=== PATIENT | female | born 1955 | race Caucasian/White ===

== ENCOUNTER 2017-01-14 09:00 | Outpatient (CLI) | payer MEDICAID | END 2017-01-14 09:15 | disposition home or self-care (01) | LOC: RT.N 09:00 | PROVIDERS: ATTEND Nurse Practitioner Gerontology | DX: R07.89 Other chest pain (principal) | CPT/HCPCS: 93005 ==

== ENCOUNTER 2017-08-19 17:08 | Outpatient (CLI) | payer MEDICAID ==
--- NOTE | 2017-08-20 07:39 | Ultrasound Report ---
EXAM: PELVIC ULTRASOUND EXAM DATE: 08/19/2017 06:30 PM. CLINICAL HISTORY: POSTMENOPAUSAL BLEEDING. COMPARISON: None. TECHNIQUE: Realtime transabdominal pelvic scan performed to identify the uterus and adnexa and as an overview of other pelvic structures, followed by transvaginal scan to provide greater detail of the u terus and adnexa, with static image documentation. FINDINGS: Uterus: 7.6 x 3.5 x 4.8 cm, volume 66.7 cc. Anteverted position. Heterogeneous. Masses: Dominant fundal/anterior fibroid measuring 3.1 x 2.5 x 3.5 cm Endometrium: 5.8 mm. Indwelling IUD obscures endometrial detail. Cervix: Few nabothian cysts. Right Ovary: 1.9 x 1.2 x 1.8 cm, volume 2.1 cc. Normal echotexture and blood flow. Left Ovary: 6.1 x 4.2 x 5.7 cm, volume 76 cc. Simple cyst measuring 5.8 x 3.7 x 5.3 cm. Normal blood flow in the surrounding ovarian tissue. Free Fluid: None. IMPRESSION: 1. Indwelling IUD obscures detailed evaluation of the endometrium. 2. Simple left ovarian cyst measuring 5.8 cm in maximal dimension. Recommend follow-up to ensure reso lution in the setting of exogenous hormonal therapy. 3. Leiomyomatous uterus. Dominant fundal fibroid measuring 3.5 cm. [facility] Referring Provider Line: [phone] SITE ID: [id number]
== END 2017-08-19 17:09 | disposition home or self-care (01) ==
LOC: DI 17:08
PROVIDERS: ATTEND Obstetrics & Gynecology
DX: N83.292 Other ovarian cyst, left side (principal); D25.9 Leiomyoma of uterus, unspecified
CPT/HCPCS: 76830; 76856

== ENCOUNTER 2017-10-17 10:44 | Outpatient (CLI) | payer MEDICAID ==
--- NOTE | 2017-10-17 12:21 | Ultrasound Report ---
PELVIC ULTRASOUND: 10/17/2017 CLINICAL INDICATION: Follow up left cyst. TECHNIQUE: Transabdominal pelvic ultrasound performed for global evaluation. Transvaginal pelvic ultrasound performed for detailed evaluation. Real-time scanning performed and static images obtained. COMPARISON: 08/19/2017 FINDINGS: The uterus is anteverted, measuring 8.6 x 5.2 x 3.7 cm. An IUD is again noted in the endometrial canal. Fundal leiomyoma measures 3.2 cm. The right ovary measures 2.8 x 2.1 x 1.6, and is unremarkable. The left ovary measures 6.4 x 5.5 x 4.9 cm, and again demonstrates a 5.7 x 4.7 x 4.5 cm simple cyst. No free fluid is present. IMPRESSION: NO SIGNIFICANT INTERVAL CHANGE IN THE LEFT OVARIAN CYST. STABLE IUD AND LEIOMYOMA. TD: 10/17/2017 12:20
== END 2017-10-17 10:45 | disposition home or self-care (01) ==
LOC: DI 10:44
PROVIDERS: ATTEND Obstetrics & Gynecology
DX: N83.202 Unspecified ovarian cyst, left side (principal); D25.9 Leiomyoma of uterus, unspecified; Z97.5 Presence of (intrauterine) contraceptive device
CPT/HCPCS: 76830; 76856

== ENCOUNTER 2017-12-06 09:28 | Outpatient (CLI) | payer MEDICAID | END 2017-12-06 09:29 | disposition home or self-care (01) | LOC: LAB.N 09:28 | PROVIDERS: ATTEND Obstetrics & Gynecology | DX: N83.292 Other ovarian cyst, left side (principal) | CPT/HCPCS: 36415; 86304 ==

== ENCOUNTER 2017-12-27 14:44 | Outpatient (CLI) | payer MEDICAID ==
[2017-12-27 15:04] LABS: BASOPHILS % (AUTO) 0.5 %; EOSINOPHILS # (AUTO) 0.1 10^3/uL (0.0-0.7); EOSINOPHILS % (AUTO) 1.6 %; HGB - HEMOGLOBIN 14.6 g/dL (12.0-16.0); LYMPHOCYTES % (AUTO) 30.1 %; MEAN CORPUSCULAR HEMOGLOBIN 31.3 pg (27.0-31.0); MEAN CORPUSCULAR HGB CONC 34.1 g/dL (32.0-36.0); MEAN PLATELET VOLUME 7.8 fL (7.9-10.8); MONOCYTES # (AUTO) 0.7 10^3/uL (0.0-1.0); MONOCYTES % (AUTO) 11.4 %; NEUTROPHILS # (AUTO) 3.7 10^3/uL (1.5-6.6); NEUTROPHILS % (AUTO) 56.4 %; PLT - PLATELET COUNT 228 10^3/uL (130-450); RED BLOOD COUNT 4.65 10^6/uL (4.20-5.40); RED CELL DISTRIBUTION WIDTH 13.9 % (12.0-15.0); WHITE BLOOD COUNT 6.5 x10^3/uL (4.8-10.8)
[2017-12-27 15:15] LABS: CALCIUM 9.1 mg/dL (8.5-10.3); CREATININE 0.7 mg/dL (0.4-1.0)
== END 2017-12-27 14:45 | disposition home or self-care (01) ==
LOC: LAB 14:44
PROVIDERS: ATTEND Obstetrics & Gynecology
DX: Z01.812 Encounter for preprocedural laboratory examination (principal); N83.292 Other ovarian cyst, left side
CPT/HCPCS: 36415; 71046; 80048; 85025; 86850; 86900; 86901; 93005

== ENCOUNTER 2017-12-27 15:10 | Outpatient (CLI) | payer MEDICAID | END 2017-12-27 15:11 | disposition home or self-care (01) | LOC: DI 15:10 | PROVIDERS: ATTEND Obstetrics & Gynecology | DX: N83.292 Other ovarian cyst, left side (principal) ==

== ENCOUNTER 2017-12-28 06:06 | Day surgery (SDC) | payer MEDICAID ==
--- NOTE | 2017-12-27 17:14 | PREOP HISTORY & PHYSICAL ---
DATE OF SERVICE: 12/28/2017 Physician: Howard Emanuel MD PREOPERATIVE HISTORY AND PHYSICAL 12/27/2017 FOR ANTICIPATED DATE OF PROCEDURE OF 12/28/2017. IDENTIFICATION: Patient is a 62-year-old; she is complaining of left ovarian cyst, which is complex and persistent. She presents today for preop for her laparoscopic removal. She states she also has some left-sided abdominal pain, particularly on the low side. She had a CA-125, which was noted to be normal. PAST MEDICAL HISTORY: Positive for migraines. She also has a potential of some seizure disorder, which has not been fully diagnosed. She has a history of breast cancer in 2015. PAST SURGICAL HISTORY: Positive for a laparoscopic cholecystectomy. She also had a lumpectomy on the left side with axillary lymph nodes. ALLERGIES: NONE KNOWN. SHE DOES HAVE A SENSITIVITY TO CODEINE, WHICH CAUSES NAUSEA AND VOMITING. CURRENT MEDICATIONS: She is currently doing a estradiol patch as well as a Mirena IUD. She is aware of the risks of Estrogen with a recent history of breast Cancer. She also takes antimigraine medication. HABITS: Patient denies use of tobacco. Drinks alcohol seldom. Denies use of any street drugs or THC. SOCIAL HISTORY: Patient is single. She lives with a significant other. She is currently unemployed at this time. FAMILY HISTORY: Positive for prostate cancer, as well as lung cancer. PHYSICAL EXAMINATION GENERAL: Patient is a well-developed, well-nourished white female in no acute distress at this time. VITAL SIGNS: Blood pressure is noted to be within normal limits. HEENT: Pupils equal, round. Extraocular muscles intact. Mouth is clear. NECK: Thyroid not palpably enlarged. HEART: Regular rate and rhythm without murmurs. LUNGS: Lung hernandes are clear without rales or wheezes. ABDOMEN: Exam shows well-healed scars from previous laparoscopic cholecystectomy. She notes some vague tenderness on the left side of her abdomen. IMPRESSION: A 62-year-old female with history of persistent left ovarian cyst with normal tumor markers. PLAN: We will perform laparoscopic left salpingo-oophorectomy as well as right salpingectomy. Risks and benefits have been explained to the patient including those, but not limited to bleeding, infection, injury to pelvic organs which include the uterus, tubes, ovaries, bowel, bladder,, and ureters. She is aware of the potential for DVT with PE. TD: 12/27/2017 14:14 JOSE G
--- NOTE | 2017-12-27 17:49 | XRAY Report ---
TWO VIEW CHEST: 12/27/2017 CLINICAL INDICATION: Preop, left ovarian cyst. FINDINGS: Frontal and lateral views of the chest demonstrate a normal cardiac silhouette. There is minimal left basilar atelectasis present. No effusion or pneumothorax is seen. IMPRESSION: MINIMAL LEFT BASILAR ATELECTASIS. TD: 12/27/2017 15:37
[2017-12-28] MEDS ORDERED: ceFAZolin 2 GM/50 ML 2 GM/50 ML BAG IV ONE (06:49)
[2017-12-28] MEDS ORDERED: LACTATED RINGERS 1,000 ML IV ONE (07:08)
[2017-12-28] MEDS ORDERED: BUPIVACAINE 0.25%-EPI 1:200000 PF 30 ML VIAL ONE (07:17)
[2017-12-28] MEDS ORDERED: BUPIVACAINE 0.25%-EPI 1:200000 PF 30 ML VIAL SUBQ ONE ×2 (08:40)
[2017-12-28] MEDS ORDERED: GLYCOPYRROLATE 1 MG/5 ML VIAL IVP ONE (08:54)
[2017-12-28] MEDS ORDERED: MIDAZOLAM 2 MG/2 ML VIAL IVP ONE (08:54)
[2017-12-28] MEDS ORDERED: KETOROLAC 30 MG/ML VIAL IVP ONE (08:54)
[2017-12-28] MEDS ORDERED: NEOSTIGMINE 1 MG/1 ML 10 ML MDV IVP ONE (08:54)
[2017-12-28] MEDS ORDERED: PROPOFOL 200 MG/20 ML VIAL IVP ONE (08:54)
[2017-12-28] MEDS ORDERED: ONDANSETRON 4 MG/2 ML VIAL IVP ONE (08:54)
[2017-12-28] MEDS ORDERED: ePHEDrine 50 MG/ML VIAL IVP ONE (08:54)
[2017-12-28] MEDS ORDERED: DEXAMETHASONE 4 MG/ML VIAL IVP ONE (08:54)
[2017-12-28] MEDS ORDERED: ROCURONIUM 50 MG/5 ML VIAL IVP ONE (08:54)
[2017-12-28] MEDS ORDERED: fentaNYL 250 MCG/5 ML VIAL IVP ONE (08:54)
[2017-12-28] MEDS ORDERED: ONDANSETRON 4 MG/2 ML VIAL ONE (10:14)
[2017-12-28] MEDS ORDERED: ACETAMINOPHEN 1,000 MG/100 ML 100 ML IV ONE (10:14)
[2017-12-28] MEDS ORDERED: oxyCOD/ACETAMIN 5 MG/325 MG TABLET PO ONE (11:02)
--- NOTE | 2017-12-28 11:41 | OPERATIVE REPORT ---
DATE OF SERVICE: 12/28/2017 Physician: Howard Emanuel MD PREOPERATIVE DIAGNOSIS: Persistent complex left ovarian cyst. POSTOPERATIVE DIAGNOSES 1. Persistent complex left ovarian cyst. 2. Left cornual fibroid. NAME OF PROCEDURE: Laparoscopic bilateral salpingo-oophorectomy. SURGEON: Howard Emanuel MD JAVASCRIPT FRONT END DEVELOPER: Howard Cota MD ANESTHESIA: General via endotracheal tube. ESTIMATED BLOOD LOSS: 5 mL FINDINGS: There is a roughly 5 cm simple left ovarian cyst noted. There was also a left cornual fibroid of roughly 4 cm in diameter. The right tube and ovary, as well as appendix, appeared to be normal. The gallbladder was surgically absent. SPECIMENS TO PATHOLOGY 1. Left ovarian cyst fluid. 2. Left tube and ovary. 3. Right tube and ovary. DESCRIPTION OF PROCEDURE: Following adequate endotracheal anesthesia, the patient was placed in the dorsal lithotomy position in [facility]. Pelvic examination under anesthesia performed. At this point, she was prepped and draped in the usual fashion. A timeout was performed, at which time the patient was identified, procedure, as well as concerns. A speculum was placed in the vagina. The cervix was visualized, grasped with a single-tooth tenaculum. Her IUD strings were noted to be in place. The cervical manipulator was placed in the cervical os. At this point, the aviation electronic warfare operator's gloves were changed and following local anesthesia with 0.25% Marcaine with epinephrine, a stab wound was made in the subumbilical region with #11 blade. A 5 mm trocar and sheath were placed under direct visualization on the first attempt. The bowel was inspected, no evidence of any injury. Then, both left and right quadrant incisions were made with 0.25% Marcaine with epinephrine and trocars were placed under direct visualization. The pelvis was inspected with the aforementioned left ovarian cyst as well left cornual fibroid noted. At this time, the right tube and ovary inspected and noted to be normal. The right ovary was then grasped and the infundibulopelvic ligament was doubly cauterized. Then transecting across the mesovarium just superior to the round ligament, the ovary and tube were cauterized and then transected all the way to the fallopian tube. At this point, the ovary and tube were noted to be free. The right lower quadrant incision was extended and then a 12 mm trocar and sheath were placed under direct visualization. Endopouch was then placed and the ovary was placed in this and then brought out through the right lower incision with a single pass. At this point, the left fallopian tube was grasped and then the infundibulopelvic ligament as well as ovarian vessels were identified. These were doubly cauterized. Care was taken to stay free from the bowel. This was then transected and then the mesovarium was likewise cauterized, transected all the way to the cornu. Care was taken not to traverse the round ligament on the left-hand side either. The ovary was then put in an Endopouch and brought up to the right lower quadrant incision. This was then drained with a 22-gauge spinal needle of roughly 20 mL of straw-colored fluid. The ovary was then brought out in toto and then sent for pathology. The right lower quadrant incision was then closed utilizing a Poncho-Xiomy 0 Vicryl. This was inspected both digitally as well as laparoscopically, and noted to be closed. At this time, the pelvis was irrigated and there was no evidence of any bleeding. The left lower quadrant trocar was removed under direct visualization, no evidence of any bleeding from this site. The CO2 was allowed to escape and then the subumbilical sheath was removed. All 3 incisions were then closed with 4-0 Monocryl subcuticularly and then injected with 0.25% Marcaine with epinephrine. The instruments were then removed from the vagina. The patient tolerated the procedure well and was taken to recovery in stable condition. Sponge and needle counts were correct. TD: 12/28/2017 10:02 JOSE G
[2017-12-28 12:06] VITALS: BP 117/69
== END 2017-12-28 06:07 | disposition home or self-care (01) ==
LOC: SDS 06:06
PROVIDERS: ATTEND Obstetrics & Gynecology
PROC: 0UB74ZZ Excision of Bilateral Fallopian Tubes, Percutaneous Endoscopic Approach (ICD-10-PCS; 2017-12-28)
PROC: 0UB24ZZ Excision of Bilateral Ovaries, Percutaneous Endoscopic Approach (ICD-10-PCS; principal; 2017-12-28 07:30)
DX: N83.292 Other ovarian cyst, left side (principal); D25.9 Leiomyoma of uterus, unspecified; J98.11 Atelectasis
CPT/HCPCS: 58661; 71046; A9270; J0131; J0690; J3010; J7120; 88108; 88305

== ENCOUNTER 2019-05-28 07:00 | Outpatient (CLI) | payer MEDICAID | END 2019-05-28 23:59 | disposition home or self-care (01) | LOC: LAB.R 07:00 | PROVIDERS: ATTEND Nurse Practitioner Gerontology | DX: Z13.9 Encounter for screening, unspecified (principal) | CPT/HCPCS: 82274 ==

== ENCOUNTER 2021-03-20 09:06 | Outpatient (CLI) | payer MEDICAID ==
--- NOTE | 2021-03-23 15:51 | Mammography Report ---
BILATERAL DIGITAL DIAGNOSTIC MAMMOGRAM 3D/2D: 03/20/2021 CLINICAL: Occasional pain in both breasts. Comparison is made to exams dated: 05/18/2019 ultrasound, 05/18/2019 mammogram, 04/03/2018 mammogram, mammogram, and 02/02/2017 mammogram - [facility]. The tissue of both breasts is h eterogeneously dense. This may lower the sensitivity of mammography. There are stable benign post operative findings and post radiation changes in the left breast. No significant masses, calcifications, or other findings are seen in either breast. IMPRESSION: INCOMPLETE: NEEDS ADDITIONAL IMAGING EVALUATION There is no abnormality seen in the left breast or left axilla to correspond with the palpable abnorm alities, however, ultrasound is recommended. There is no abnormality seen in either breast to correspond with the diffuse pain, however, clinical correlation is recommended. This exam was interpreted at Station ID: [id number]. NOTE: For mammograms, a report in lay terms will be sent to the patient. Approximately 15% of breast malignancies will not be visualized mammographically. In the management of a palpable breast mass, a negative mammogram must not discourage biopsy of a clinically suspicious lesion. Electronically Signed By: Harinder Loera M.D. ar/:03/20/2021 13:44:51 ACR BI-RADS Category 0: Incomplete 3340F PARENCHYMAL PATTERN: (D) - The breast(s) demonstrate(s) heterogeneously dense fibroglandular parwilfredoy samy. BI-RADS CATEGORY: (0) - 0 Ultrasound [id number] Immediate follow-up LATERALITY: (L)
--- NOTE | 2021-03-23 15:52 | Ultrasound Report ---
LIMITED ULTRASOUND OF LEFT BREAST AND AXILLA: 03/20/2021 CLINICAL: Palpable left breast lump. Palpable left axilla lump. Comparison is made to exams dated: 03/20/2021 mammogram - [facility], 05/18/2019 ultr asound, 05/18/2019 mammogram, 04/03/2018 mammogram, 03/17/2018 mammogram, and 02/02/2017 mammogram - [facility]. Real-time ultrasound of the left breast 7 o'clock, and axilla regions was performed. Gimenez scale imag es of the real-time examination were reviewed. No significant abnormalities were seen sonographically in the left breast or the left axilla. IMPRESSION: NEGATIVE There is no sonographic evidence of malignancy. There is no abnormality seen in the left breast or in the left axilla to correspond with the palpable abnormalities, however, clinical correlation is recommended. A 1 year screening mammogram is recommended. This exam was interpreted at Station ID: [id number]. Electronically Signed By: Harinder Loera M.D. ar/:03/20/2021 13:43:45 Ultrasound BI-RADS: 1 Negative BI-RADS CATEGORY: (1) - 1 RECOMMENDATION: (ANNUAL) - Recommend routine annual screening mammography. [id number] 1 year screening LATERALITY: (B)
== END 2021-03-20 09:07 | disposition home or self-care (01) ==
LOC: DI 09:06
PROVIDERS: ATTEND Family Medicine
DX: N64.4 Mastodynia (principal)

== ENCOUNTER 2023-06-14 11:30 | Outpatient (CLI) | payer OTHER ==
[2023-06-14] MEDS ORDERED: ALBUTEROL 1 PUFF INH STA (15:39)
== END 2023-06-14 11:31 | disposition home or self-care (01) ==
LOC: RT 11:30
PROVIDERS: ATTEND Nurse Practitioner
DX: R06.02 Shortness of breath (principal)
CPT/HCPCS: 94060

== ENCOUNTER 2023-06-29 09:15 | Outpatient (CLI) | payer OTHER ==
--- NOTE | 2023-06-30 10:39 | Mammography Report ---
BILATERAL DIGITAL DIAGNOSTIC MAMMOGRAM 3D/2D: 06/29/2023 CLINICAL: Intermittent pain in right breast. Due for bilateral exam. Comparison is made to exams dated: 04/29/2022 mammogram, 03/20/2021 mammogram - [facility], and 09/27/2014 mammogram - [facility]. Both breasts are heterogeneously dense, which may obscure small masses (category c / 51-75% glandular tissue). Stable post-operative findings in the left breast. No significant masses, calcifications, or other fi ndings are seen in either breast. IMPRESSION: BENIGN There is no mammographic evidence of malignancy. No significant interval change. Patient reports diffuse intermittent pain in the upper right breast. Exam findings were conveyed to the patient. Patient is advised to monitor for significant change. Cli nical follow-up as needed. A 1 year screening mammogram is recommended. This exam was interpreted at Station ID: [id number]. NOTE: For mammograms, a report in lay terms will be sent to the patient. Approximately 15% of breast malignancies will not be visualized mammographically. In the management of a palpable breast mass, a negative mammogram must not discourage biopsy of a clinically suspicious lesion. Electronically Signed By: Avtar Arias M.D. slc/:06/29/2023 10:02:42 ACR BI-RADS Category 2: Benign Finding(s) 3342F PARENCHYMAL PATTERN: (D) - The breast(s) demonstrate(s) heterogeneously dense fibroglandular darrel pablo. BI-RADS CATEGORY: (2) - 2 Mammogram [id number] 1 year screening LATERALITY: (B)
== END 2023-06-29 09:16 | disposition home or self-care (01) ==
LOC: DI 09:15
PROVIDERS: ATTEND Nurse Practitioner
DX: N64.4 Mastodynia (principal); R92.333 Mammographic heterogeneous density, bilateral breasts

== ENCOUNTER 2023-07-04 12:33 | Outpatient (CLI) | payer OTHER ==
[2023-07-04 12:58] LABS: CREATININE 0.7 mg/dL (0.6-1.3)
== END 2023-07-04 12:34 | disposition home or self-care (01) ==
LOC: LAB 12:33
PROVIDERS: ATTEND Nurse Practitioner
DX: R06.02 Shortness of breath (principal)
CPT/HCPCS: 36415; 82565

== ENCOUNTER 2023-07-04 12:45 | Outpatient (CLI) | payer OTHER ==
[2023-07-04] MEDS ORDERED: iohexoL-300 100 ML VIAL IVP ONE (15:06)
--- NOTE | 2023-07-04 15:58 | CT Report ---
PROCEDURE: CHEST W INDICATIONS: SHORTNESS OF BREATH CONTRAST: 100ml omni 300 TECHNIQUE: After the administration of intravenous contrast, 1 mm axial images were acquired from the pulmonary apices through the posterior costophrenic angles. Axial 5 mm soft tissue kernel reconstructions were performed as well as 8 mm axial MIP and coronal and sagittal 5 mm reformations. For radiation dose reduction, the following was used: automated exposure control, adjustment of mA and/or kV according to patient size. COMPARISON: None. FINDINGS: Image quality: Excellent. Lungs and pleura: No consolidation. No pleural effusions. No pneumothorax. No suspicious pulmonary n odules which require follow up. Biapical pleural-parenchymal scarring. Linear atelectasis versus sca rring within the right middle lobe and left lower lobe. Mild dependent atelectasis. 2 mm left adam fi ssural nodule, likely an intrapulmonary lymph node. Mediastinum: Heart size is normal. No pericardial effusion. No large vessel abnormality. No mediastin al adenopathy by size criteria. Chest wall and lower neck: Thyroid is unremarkable. No axillary or supraclavicular adenopathy by size . Partially calcified nodule within the left breast measuring 1.5 cm, and skin thickening of the left breast, correlate with prior mammography. Bones: No aggressive osseous abnormality. Degenerative changes of the spine. Upper Abdomen: Status post cholecystectomy. IMPRESSION: 1.No acute cardiopulmonary process. No cause for patient's symptoms is identified. 2.Peripherally calcified left breast nodule measuring 1.5 cm. Skin thickening of the left breast. Cor relate with age-appropriate mammography. Reviewed by: Ronald Ruffin MD on 07/04/2023 3:56 PM PST Approved by: Ronald Ruffin MD on 07/04/2023 3:56 PM PST Station ID: [id number]
== END 2023-07-04 12:46 | disposition home or self-care (01) ==
LOC: DI 12:45
PROVIDERS: ATTEND Nurse Practitioner
DX: R06.02 Shortness of breath (principal); N63.20 Unspecified lump in the left breast, unspecified quadrant; L85.9 Epidermal thickening, unspecified
CPT/HCPCS: 36415; 71260; 82565; Q9967